=== PATIENT | female | born 1940 | race Caucasian/White ===

== ENCOUNTER 2017-01-21 23:40 | Inpatient (IN) | payer MEDICARE, MEDICAID ==
[~2017-01-21] VITALS: Ht 172.7 cm; Wt 64.4 kg
[~2017-01-21 23:40] MED LIST: BENZONATATE200 MG PO; COREG 3.1253.125 MG NG; CRESTOR40 MG PO; CYMBALTA60 MG PO; DEXILANT60 MG PO; DILAUDID2 MG PO; FISH OIL 1,0001 CA1 PO; FLUTICASONE PRO16 GM NASAL; IPRAT-ALBUT 0.5-3 ML UPD; KLONOPIN1 MG PO; MOBIC7.5 MG PO; MUCINEX600 MG PO; NEURONTIN600 MG PO; OXYBUTYNIN CHLOR5 MG PO; PHENERGAN DM SYR5 ML PO; PHENERGAN25 MG RC; PLAVIX75 MG PO; PREDNISONE20 MG PO; PROMETHEGA25 MG/SUPP RC; RESTORIL15 MG PO; TRAZODONE HCL50 MG PO; VENTOLIN HFA18 GM INH; WELLBUTRIN XL150 M1 PO; ZOFRAN ODT4 MG/UDTAB PO
--- NOTE | 2017-01-22 00:10 | NUR ---
[facility]. SHE LIVES WITH HER DAUGHTER AND BOYFRIEND. 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 SHE IS UNEMPLOYED AND ONLY HAS SOCIAL SECURITY AND FOOD STAMPS. SHE HAS TO REAPPLY FOR THE FOOD STAMPS. SHE HAS BEEN HAVING THOUGHTS OF SUICIDE, BUT DOES NOT HAVE A PLAN. SHE IS CALM AND COOPERATIVE. WILL CONTINUE TO MONITOR FOR SAFETY AND CHANGES.
[2017-01-22] MEDS ORDERED: NAPROSYN500 MG PO (03:01)
[2017-01-22] MEDS ORDERED: DETROL LA4 MG PO (03:03)
[2017-01-22] MEDS ORDERED: ATARAX 25 MG TA25 MG PO (03:03)
[2017-01-22] MEDS ORDERED: REXULTI1 MG PO (03:05)
[2017-01-22] MEDS ORDERED: NITROSTAT0.4 MG SL (03:07)
[2017-01-22 05:12] VITALS: BP 156/83; BMI 21.6
[2017-01-22 07:58] LABS: CHOL - HDL RATIO 7.7 ratio (2.3-4.1); CHOLESTEROL, TOTAL 333 mg/dL (0-200); HDL CHOLESTEROL 43 mg/dL (32-96); THYROID STIMULATING HORMONE 1.65 uIU/mL (0.36-3.74)
[2017-01-22 08:02] LABS: TRIGLYCERIDE 502 mg/dL (30-200)
[2017-01-22 09:01] VITALS: Ht 172.7 cm; Wt 64.4 kg
[2017-01-22 09:35] VITALS: BP 117/75
--- NOTE | 2017-01-22 12:30 | NUR ---
B) PATIENT IS ALERT AND ORIENTED, SHE CONTRACTS FOR NO SELF HARM, BUT SHE HAS MADE A PLAN. PATIENT HAS A SITUATION THAT HAS CAUSED HER TO BE UPSET AND DEPRESSED. SHE IS POLITE AND COOPERATIVE. DR. CORNEJO AND SAMY Nova HAVE SPOKEN TO HER AT GREAT LENGTH TODAY. I) PROVIDE PRESCRIBED MEDS. R) PATIENT IS COMPLIANT WITH MEDS. P) CONTINUE PLAN OF CARE.
--- NOTE | 2017-01-22 18:55 | NUR ---
PATIENT'S DAUGHTER HAROLDO CALLED AND WE DID PROVIDE A CODE WORD FOR HER TO HAVE, BUT PATIENT IS UPSET AND SO SHE IS NOT TAKING PHONE CALLS EXCEPT FROM HER BEST FRIEND ALYSSA. HAROLDO SAYS "WELL, GIVE HER THIS MESSAGE FOR ME GRANDMA SAID LEAVE THEM ALONE THEY'LL COME HOME WITH THEIR TAILS WAGGING BEHIND THEM" HAROLDO SAID "SHE'LL KNOW WHAT IT MEANS". SPOKE WITH SAMY LICEA AND SHE STATED THAT AT THIS TIME WE WILL NOT GIVE THE MESSAGE TO THE PATIENT SHE IS UPSET TODAY AND IT IS OUR PRIORITY TO MAKE THE PATIENT FEEL SAFE.
[2017-01-22 19:30] VITALS: BP 108/76
--- NOTE | 2017-01-22 20:00 | NUR ---
RECEIVED IN DAYROOM, LYING ON SOFA RESTING QUIETLY. ALERT AND PLEASANT WITH STAFF. SHE CONTRACTS FOR NO SELF HARM. CALM AND COOPERATIVE WITH MEDICATIONS. VSS. MEDICATION COMPLIANT. READING A BOOK PRIOR TO GOING TO SLEEP. WILL COMTINUE PLAN OF CARE.
--- NOTE | 2017-01-22 22:30 | NUR ---
PATIENT TALKED AT LENGTH ABOUTGT HER SITUATION AND FAMILY. SHE FEELS BETTER SINCE SHE HAS COME HERE.
--- NOTE | 2017-01-23 12:34 | NUR ---
B) PATIENT IS AWAKE AND ALERT, SHE IS ORIENTED X3, SHE HAS DEPRESSION RELATED TO PSYCHOSOCIAL DYNAMICS. SAMY LICEA SUBSTANCE ABUSE SERVICES DIRECTOR HAS STATED TO PATIENT AND STAFF THAT A THERAPIST SHE WOULD PREFER PATIENT NOT HAVE HER DAUGHTERS VISIT TODAY. PATIENT VERBALIZES UNDERSTANDING. I) PROVIDE PRESCRIBED MEDS. R) PATIENT IS COMPLIANT WITH MEDS AND UN[facility]. P) CONTINUE PLAN OF CARE.
[2017-01-23 19:30] VITALS: BP 110/83
--- NOTE | 2017-01-24 02:56 | NUR ---
B) Recieved patient in the dayroom laying on the couch, alert and oriented x 3, no S.I. this shift, calm and cooperative, I) Administered perscribed medications, contracted for safety, monitored for behaviors, R) Medication compliant, ambulates independantly, P) Continue plan of care.
[2017-01-24 08:57] VITALS: BP 149/95
--- NOTE | 2017-01-24 17:58 | NUR ---
Patient in dayroom, oriented to self, time, place and situation. She is quietly reading book. She is calm and cooperative. Denies S.I. at this time. Verbal contract with nurse that she will not self harm. continue to monitor
[2017-01-24 19:30] VITALS: BP 126/86
--- NOTE | 2017-01-24 22:07 | NUR ---
B) Recieved patient in the day room sitting on the couch reading a book, alert and oriented X 4, calm and cooperative, no S.I. this shift, contracts for safety, I) Administered perscribed medication, PRN Tylenol 650 mg and Ativan 0.5 mg given for headache and anxiety R) Medication compliant, resting quietly P) Continue plan of care.
[2017-01-25 07:00] VITALS: BP 142/82
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
--- NOTE | 2017-01-25 17:53 | NUR ---
Patient in dayroom reading on couch. Oriented to self, time, place and situation. She says she is working on developing healthy boundaries and states she was just overwhelmed at the time. Patient is making plans for her discharge.
[2017-01-25 19:42] VITALS: BP 187/88
--- NOTE | 2017-01-25 19:42 | NUR ---
RECEIVED IN HALLWAY OUTSIDE OF NURSES STATION. SITTING QUIETLY IN A CHAIR READING. CALM AND COOPERATIVE WITH CARE AND ASSESSMENT. DENIES THOUGHTS OF SELF HARM. ENCOURAGE TO EXPRESS NEEDS. CONTINUES TO SIT QUIETLY. CONTINUE PLAN OF CARE
[2017-01-26 07:00] VITALS: BP 126/79
[2017-01-26 07:08] LABS: VITAMIN D 25 HYDROXY 14.8 ng/mL (30.0-100.0)
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
[2017-01-26] MEDS ORDERED: EFFEXOR50 MG PO (15:08)
[2017-01-26] MEDS ORDERED: LIDODERM 5 %1 PATCH TRANSDERM (15:09)
[2017-01-26] MEDS ORDERED: VITAMIN D5000 UNIT PO (15:10)
--- NOTE | 2017-01-26 16:53 | NUR ---
Patient in dayroom on couch. She had several visitors today. Calm and cooperative with medication. Patient is making arrangements for discharge. Continue to monitor, continue plan of care
--- NOTE | 2017-01-26 19:15 | NUR ---
RECIVED IN DAYROO. LAYING ON SOFA READING A BOOK. ALERT AND ORIENTED. CALM AND COOPERATIVE WITH CARE AND ASSESSMENTS. DENIES THOUGHTS OF SELF HARM. ENCOURAGE TO EXPRESS NEEDS AND FEELINGS. CONTINUES TO SIT QUIETLY READING. CONTINUE PLAN OF CARE
[2017-01-26 19:42] VITALS: BP 154/78
[2017-01-27 03:09] LABS: RAPID PLASMA REAGIN Non Reactive (Non Reactive)
[2017-01-27 08:00] VITALS: BP 124/83
--- NOTE | 2017-01-27 11:00 | NUR ---
ALERT AND ORIENTED TIMES FOUR, SMILING AND SOCIALIZING WITH OTHERS. nO SUICIDIAL IDEATIONS. CONTRACT FOR SAFETY. COMPLIANT WITH MEDICATIONS. COPING WELL. PLANS TO DISCHARGE LATE TODAY WITH FAMILY.
--- NOTE | 2017-01-27 13:01 | PN ---
PATIENT:AVIS BALDERAS MEDICAL RECORD: [id number] LOCATION:[facility] ADMISSION DATE: 01/21/17 PROGRESS NOTE DATE OF SERVICE: 01/26/2017 SUBJECTIVE: The patient's case was discussed with staff. She has no new complaint. OBJECTIVE: The patient is in good behavioral control with limited insight about her condition. She has no active thoughts of harming herself or others and is tolerating her antidepressant medicine well. ASSESSMENT: No change in diagnoses. PLAN: The patient will be transitioned out of the hospital tomorrow. Her long-term prognosis is guarded. TRANSINT:[id number] Voice Confirmation ID: [id number] DOCUMENT ID: [id number] DAMON CORNEJO MD at 1301 CC: [id number] DICTATION DATE: 01/26/17 144 SEED TRUCKER: 01/26/17 2237 ADM IN [place] [id number] [place] [id number]
--- NOTE | 2017-01-28 15:59 | PN ---
PATIENT:AVIS BALDERAS MEDICAL RECORD: [id number] [facility] ADMISSION DATE: 01/21/17 PROGRESS NOTE DATE OF SERVICE: 01/27/2017 SUBJECTIVE: The patient's case was discussed with staff. She has no new complaint. OBJECTIVE: The patient is in good behavioral control with limited insight about her condition. She tolerates her medicines well. ASSESSMENT: No change in diagnoses. PLAN: Current medicines have been reviewed and will be maintained. Long-term prognosis is guarded. TRANSINT:[id number] Voice Confirmation ID: [id number] DOCUMENT ID: [id number] DAMON CORNEJO MD at 1559 CC: [id number] DICTATION DATE: 01/27/17 1307 FILLING STATION ATTENDANT: 01/27/17 1939 DIS IN 01/27/17 [facility] [address] [place] [address]
== END 2017-01-27 19:25 | disposition home or self-care (01) | DRG 881 ==
LOC: D.PSYCH 23:40
PROVIDERS: ADMIT Psychiatry & Neurology Psychiatry
DX: F32.9 Major depressive disorder, single episode, unspecified (principal); M32.9 Systemic lupus erythematosus, unspecified; J44.9 Chronic obstructive pulmonary disease, unspecified; E78.5 Hyperlipidemia, unspecified; D64.9 Anemia, unspecified; K59.00 Constipation, unspecified; I10 Essential (primary) hypertension; E11.9 Type 2 diabetes mellitus without complications; G89.29 Other chronic pain; M54.9 Dorsalgia, unspecified

== ENCOUNTER → 2018-06-17 13:06 | Outpatient (CLI) | payer OTHER, MEDICARE ==
[2017-01-22 09:01] VITALS: BMI 21.5
[~2018-06-17 13:06] MED LIST changes: +ATARAX 25 MG TA25 MG PO; +DETROL LA4 MG PO; +EFFEXOR50 MG PO; +LIDODERM 5 %1 PATCH TRANSDERM; +NAPROSYN500 MG PO; +NITROSTAT0.4 MG SL; +REXULTI1 MG PO; +VITAMIN D5000 UNIT PO
== END | disposition home or self-care (01) ==
LOC: D.CT 13:06
DX: R52 Pain, unspecified (principal)